=== PATIENT | female | born 1965 | race African-American/Black ===

== ENCOUNTER 2021-06-19 06:13 | Emergency (ER) | payer BC ==
[~2021-06-19] VITALS: Ht 165.1 cm; Wt 81.0 kg
[2021-06-19] MEDS ORDERED: MAGNESIUM/ALUMINUM HYDROXIDE/SIMETHICONE 30ML UDC PO STA (06:39)
[2021-06-19] MEDS ORDERED: SODIUM CHLORIDE 0.9% 1,000 ML IV ONE (06:45)
[2021-06-19 07:49] LABS: BASOPHILS % 0.4 % (0.0-2.0); EOSINOPHILS % 0.1 % (0.0-5.0); HEMATOCRIT. 45.3 % (36.0-48.0); LYMPHOCYTES % 27.6 % (20.0-50.0); MEAN CORPUSCULAR HEMOGLOBIN 29.7 pg (28.0-32.0); MEAN CORPUSCULAR VOLUME 89.7 fL (81.0-99.0); MEAN PLATELET VOLUME 9.6 fl (7.4-10.4); MONOCYTES % 7.9 % (2.0-8.0); PLATELET 120 x1000/uL (130-400); RED BLOOD CELL COUNT 5.05 mill/uL (4.2-5.4); RED CELL DISTRIBUTION WIDTH 13.6 % (11.6-14.6)
[2021-06-19 08:00] LABS: CHLORIDE 104 mEq/L (98-107)
[2021-06-19] MEDS ORDERED: KETOROLAC 15MG/ML VIAL IV ONE (09:00)
[2021-06-19] MEDS ORDERED: IBUP-2029 MT (09:16)
[2021-06-19 09:56] VITALS: BP 118/70
== END 2021-06-19 10:57 | disposition home or self-care (01) ==
LOC: ER 06:13
DX: U07.1 COVID-19 (principal); R55 Syncope and collapse; R07.89 Other chest pain; R53.1 Weakness; R06.02 Shortness of breath; R42 Dizziness and giddiness; R03.0 Elevated blood-pressure reading, without diagnosis of hypertension; J45.909 Unspecified asthma, uncomplicated
CPT/HCPCS: 36415; 71045; 80053; 83690; 85025; 93005; 96360; 96361; 99285; J1885; J7030